=== PATIENT | male | born 1990 | race Caucasian/White ===

== ENCOUNTER 2017-01-14 04:39 | Emergency (ER) | payer OTHER ==
[~2017-01-14] VITALS: Ht 182.9 cm; Wt 91.4 kg
[2017-01-14 04:39] VITALS: TEMP 36.7; Ht 182.9 cm; Wt 91.4 kg
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
[2017-01-14 05:33] LABS: BLOOD UREA NITROGEN 15 mg/dl (7-18); BUN/CREATININE RATIO 14.7 (10-20); CALCIUM 9.4 mg/dl (8.5-10.1); CARBON DIOXIDE 30 mmol/L (21-32); CHLORIDE 107 mmol/L (98-107); GLUCOSE 120 mg/dl (70-99); SODIUM 144 mmol/L (136-145)
[2017-01-14 09:36] VITALS: BP 120/76; PULSE 86; O2SAT 97
== END 2017-01-14 09:38 | disposition home or self-care (01) ==
LOC: EDBD 04:39 → C.EDA 04:42
DX: T51.0X1A Toxic effect of ethanol, accidental (unintentional), initial encounter (principal); F10.129 Alcohol abuse with intoxication, unspecified; Y90.7 Blood alcohol level of 200-239 mg/100 ml